=== PATIENT | male | born 1945 ===

== ENCOUNTER → 2016-11-21 | Outpatient (CLI) | payer OTHER, BC ==
[2016-11-21 10:11] LABS: BASO % 0.4 %; BASO ABS # 0.03 K/uL (0-0.2); COMPLETE YES; HEMATOCRIT 44.8 % (42-52); IG% 0.3 %; LYMPH % 18.6 %; MEAN CELL VOLUME 91.6 fL (80-100); MEAN CORPUSCULAR HEMOGLOBIN 32.5 pg (25-34); MEAN CORPUSCULAR HGB CONC 35.5 g/dl (32-36); MEAN PLATELET VOLUME 10.7 fL (7.4-10.4); NEUT % 68.7 %; PLATELET COUNT 205 K/uL (130-400); RED BLOOD COUNT 4.89 M/uL (4.7-6.1)
[2016-11-21 10:56] LABS: ALB/GLOB RATIO 1.3 (0.9-2); ALT/SGPT 24 U/L (12-78); BLOOD UREA NITROGEN 20 mg/dl (7-18); CALCIUM 9.7 mg/dl (8.5-10.1); CARBON DIOXIDE 27 mmol/L (21-32); CHLORIDE 104 mmol/L (98-107); GLUCOSE 125 mg/dl (70-99); SODIUM 141 mmol/L (136-145)
[2016-11-21 10:59] LABS: ALKALINE PHOSPHATASE 66 U/L (45-117); AST/SGOT 21 U/L (15-37)
== END | disposition home or self-care (01) ==
LOC: C.LABVPSUW 09:57
PROVIDERS: ATTEND Internal Medicine Critical Care Medicine
DX: N28.9 Disorder of kidney and ureter, unspecified (principal); R63.4 Abnormal weight loss; D72.829 Elevated white blood cell count, unspecified

== ENCOUNTER → 2017-07-20 | Outpatient (CLI) | payer OTHER, BC ==
[2017-07-20 09:51] LABS: BLOOD UREA NITROGEN 23 mg/dl (7-18); BUN/CREATININE RATIO 17.6 (10-20); CALCIUM 9.8 mg/dl (8.5-10.1); CARBON DIOXIDE 25 mmol/L (21-32); CHLORIDE 107 mmol/L (98-107); GLUCOSE 109 mg/dl (70-99); POTASSIUM 4.2 mmol/L (3.5-5.1); SODIUM 140 mmol/L (136-145)
[2017-07-20 09:54] LABS: CHOLESTEROL 145 mg/dl (0-200); HDL CHOLESTEROL 74 mg/dl; LDL CHOLESTEROL CALCULATED 57 mg/dl; TRIGLYCERIDES 72 mg/dl (0-150); VERY LOW DENSITY LIPOPROT CALC 14 mg/dl
[2017-07-20 10:03] LABS: ESTIMATED AVERAGE GLUCOSE 131 mg/dl; HA1C FLAG Normal (Normal)
== END | disposition home or self-care (01) ==
LOC: C.LABVPSUW 08:57
PROVIDERS: ATTEND Internal Medicine Critical Care Medicine
DX: R73.9 Hyperglycemia, unspecified (principal); I10 Essential (primary) hypertension; E78.5 Hyperlipidemia, unspecified